=== PATIENT | female | born 1990 | race Caucasian/White ===

== ENCOUNTER 2023-10-05 15:29 | Inpatient (IN) ==
[2023-10-05] MEDS: LACTATED RINGER'S 1,000 ML IV PRN ×3 (17:55→20:20)
[2023-10-05] MEDS ORDERED: OXYTOCIN 30 UNITS/NSS 30 UNITS/500 ML BAG IV PRN (19:57)
[2023-10-05] MEDS ORDERED: LACTATED RINGER'S 1,000 ML IV PRN (19:57)
[2023-10-05] MEDS ORDERED: LIDOCAINE 1% LOCAL 20 ML VIAL INFIL PRN (19:57)
[2023-10-05] MEDS ORDERED: LIDOCAINE 2%/EPINEPHRINE 1:200,000 20 ML PF ONE (20:01)
[2023-10-05] MEDS ORDERED: fentANYL 2 MCG/ML BUPIVacaine 0.125%-NSS 100ML BAG ONE (20:01)
[2023-10-05] MEDS ORDERED: SODIUM CHLORIDE 0.9% PF INJ 10 ML VIAL ONE (20:01)
[2023-10-05] MEDS ORDERED: fentaNYL citrate PF 100 MCG/2 ML VIAL ONE (20:01)
[2023-10-05] MEDS ORDERED: ePHEDrine sulfate 50 MG/ML AMP ONE (20:01)
[2023-10-05] MEDS ORDERED: BUPIVACAINE 0.25% PF 30 ML VIAL ONE (20:01)
--- NOTE | 2023-10-05 20:01 | History & Physical Report ---
Date of Service October 05, 2023 Assessment & Plan (1) Post-dates : Plan plan to admit and augment labor with arom after receiving epidural. Fetus category one. Anticipate . History of Present Illness Chief Complaint: contractions Primary Care Provider: NO PCP Patient is a 33yof with iup at 40 1/7 weeks who presents to labor and delivery with contractions. She notes started in am and progressively getting worse all day. the patient has had very little hydration as well and dipped very high ketones. She was given two liters of ivf, notes contractions and closer and more painful. no lof/vb. Given that she is 40 1/7 weeks, I offered admission, epidural and arom. She is agreeable. and Delivery Plans Carrier of Alpha Thalassemia *FOB to be tested-negative IOL - 10/13 Protocols Last pap 11/16/22 with C WNL OB Labs: Hemoglobin 11.6 g/dl (12.0-16.0) L 07/12/23 Hematocrit 34.9 % (37.0-47.0) L 07/12/23 Glucose 1 Hour 50 gm Load 104 mg/dl (70-130) 07/12/23 Maternal Serum Alpha Fetoprotein 32.7 ng/mL 04/23/23 OB Optional Labs: Alpha Fetoprotein Triple Screen SEE NOTE 04/23/23 Labs Reviewed: Initial OB Labs Blood Type & RH A positive Antibody Screen negative HCT/HGB39.5/12.5 [id number] Hep C IgG 13yrs+ Old negative Pap Test11/13/22 WNL Chlamydia negative Gonorrhea negative Rubella immune RPR non reactive Urine Culture/Screen no growth HBsAg negative HIV negative MCV88.8 11/2022 neg cyto qnatal - wnl, male afp neg gbs neg Allergies Allergy/AdvReac Type Severity Reaction Status Date / Time No Known Allergies Allergy Verified 10/05/23 10:10 Home Medications Medication Instructions Recorded Confirmed Type prenat.vits,terrance,zlq-oczs-oefce 1 tab PO DAILY 04/06/23 10/05/23 History RSV vac, preF A and preF B(PF) 120 0.5 ml IM ONCE #1 ea 08/26/23 10/05/23 Rx mcg/0.5 mL IM solution (Abrysvo) Patient History Medical History Migraine with aura history Surgical History Status post colposcopy S/P wisdom tooth extraction Family History Mother Diabetes Hypertension Migraines Father Diabetes Hypertension Dyslipidemia Social History Smoking Status: Never smoker Do You Dip or Chew Tobacco: No; Hx Alcohol Use: No Hx Substance Use: No Preferred Language: Wolof Beliefs That Will Affect Care: None marital status: marital status details: Bill [phone] Current Living Situation: Spouse Current Living Situation Comment: lives with spouse, no pets. current occupational status: employed current occupation: professor at [employer] Other Information That Helps Us Care for You: No Feels Safe at Home: Yes Safety Concerns: Feels Safe At This Time Assistive Devices: None OB History g1--eab YARD COORDINATOR History noncontributory Physical Exam Constitutional: WD/WN, vitals as above Gastrointestinal (Abdomen): soft, gravid Genitourinary: cx--1+/75/-3 after several checks through the evening toco=1=3min efm--130s with mod variability, accels to 160s, no decels Results & Data Vital Signs (Past 12 Hours) Vital Signs Temp Pulse Resp BP 10/05/23 18:52 36.8 C 83 18 139/81 10/05/23 15:46 36.8 C 82 20 129/84 10/05/23 15:42 36.8 C 20 Code Status & VTE Plan VTE Prophylaxis Plan VTE Prophylaxis will be ordered: No Coding Level of Care Code None Diagnoses Post-dates O48.0
[2023-10-05 20:42] LABS: Hemoglobin 11.9 g/dl (12.0-16.0); Mean Corpuscular Hemoglobin 28.9 pg (25.0-34.0); Mean Platelet Volume 11.3 fL (9.4-12.4); Platelet Count 291 K/uL (130-400); RDW Coefficient of Variation 14.1 % (11.5-14.5); RDW Standard Deviation 43.6 fL (36.4-46.3); Red Blood Count 4.12 M/uL (4.20-5.40); White Blood Count 16.82 K/ul (4.8-10.8)
--- NOTE | 2023-10-05 21:49 | Anesthesiology Consultation ---
Date of Service October 05, 2023 Assessment & Plan Chart Review Chart Review: Acceptable Risk for Labor Epidural Consults Requested none History Height/Weight Height: 5 ft 3 in Weight: 73.028 kg Allergies Allergy/AdvReac Type Severity Reaction Status Date / Time No Known Allergies Allergy Verified 10/05/23 10:10 Medications Home Medications Medication Instructions Recorded Confirmed Last Taken prenat.vits,terrance,dut-kuhf-jzblk 1 tab PO DAILY 04/06/23 10/05/23 Unknown RSV vac, preF A and preF B(PF) 120 0.5 ml IM ONCE #1 ea 08/26/23 10/05/23 Unknown mcg/0.5 mL IM solution (Abrysvo) Active Medications Generic Name Dose Route Start Last Admin Trade Name Freq PRN Reason Stop Dose Admin Lactated Ringer's 1,000 mls @ 125 mls/hr 10/05/23 18:03 10/05/23 20:20 Lr IV 11/04/23 18:02 125 mls/hr .Q8H PRN Administration L&D Protocol Protocol Past Medical History Medical History Migraine with aura history Past Family History Family History Mother Diabetes Hypertension Migraines Father Diabetes Hypertension Dyslipidemia Past Surgical History Surgical History Status post colposcopy S/P wisdom tooth extraction Social History Smoking Status: Never smoker Do You Dip or Chew Tobacco: No Hx Alcohol Use: No Hx Substance Use: No substance use type: does not use Physical Exam Vital Signs Last Vital Signs Temp 36.8 C 10/05/23 18:52 Pulse 107 H 10/05/23 21:45 Resp 18 10/05/23 21:22 BP 119/62 10/05/23 21:45 Pulse Ox 95 10/05/23 21:45 Testing Laboratory Results 10/05/23 20:28
[2023-10-05] MEDS ORDERED: ROPIVACAINE 0.5% PF 5 MG/ML 20 ML VIAL EPI PRN (21:51)
[2023-10-05] MEDS ORDERED: LIDOCAINE 2% MPF LOCAL 5 ML VIAL EPI PRN (21:51)
[2023-10-05] MEDS ORDERED: SODIUM CHLORIDE 0.9% PF INJ 10 ML VIAL EPI STA (21:51)
[2023-10-05] MEDS ORDERED: SODIUM CHLORIDE 0.9% PF INJ 10 ML VIAL EPI PRN (21:51)
[2023-10-05] MEDS ORDERED: NALOXONE HCL 0.4 MG/1 ML VIAL/CARP IV PRN (21:51)
[2023-10-05] MEDS ORDERED: LIDOCAINE 2%/EPINEPHRINE 1:200,000 20 ML PF EPI STA (21:51)
[2023-10-05] MEDS ORDERED: BUPIVACAINE 0.25% PF 30 ML VIAL EPI STA (21:51)
[2023-10-05] MEDS ORDERED: ePHEDrine sulfate 50 MG/ML AMP IV PRN (21:51)
[2023-10-05] MEDS ORDERED: diphenhydrAMINE 50 MG/ML VIAL IV PRN (21:51)
[2023-10-05] MEDS ORDERED: fentaNYL citrate PF 100 MCG/2 ML VIAL EPI PRN (21:51)
[2023-10-05] MEDS ORDERED: NALBUPHINE HCL 5 MG in SYRINGE 0 ML IV PRN (21:51)
[2023-10-05] MEDS ORDERED: NALOXONE HCL 1 MG in SODIUM CHLORIDE 0.9% 1,000 ML IV PRN (21:51)
[2023-10-05] MEDS ORDERED: ONDANSETRON INJ 2 MG/ML 2 ML VIAL IV PRN (21:51)
[2023-10-05] MEDS ORDERED: BUPIVACAINE 0.25% PF 30 ML VIAL EPI PRN (21:51)
[2023-10-05] MEDS ORDERED: fentaNYL citrate PF 100 MCG/2 ML VIAL EPI STA (21:51)
--- NOTE | 2023-10-05 22:38 | Labor Progress Brief Note ---
Date of Service October 05, 2023 Subjective comfortable after epidural Assessment & Plan (1) Post-dates : Post-term type: 40-42 weeks gestation Qualified Code(s): O48.0 - Post-term Plan continue current management. fetus category one. Admission and Anticipated Discharge Date Admission Date: October 05, 2023 Physical Exam Physical Exam: cx--4-5/80/-2 arom--clear toco--q2-4min efm--140s with mod variability, accels present, no decels Results & Data Vital Signs (Past 12 Hours) Vital Signs Temp Pulse Resp BP Pulse Ox 10/05/23 22:32 105 H 114/78 10/05/23 22:30 109 H 96 10/05/23 22:25 91 H 94 10/05/23 22:20 95 H 95 10/05/23 22:17 97 H 107/64 10/05/23 22:15 93 H 97 10/05/23 22:10 104 H 98 10/05/23 22:05 94 H 99 10/05/23 22:00 101 H 109/58 L 96 10/05/23 21:55 96 10/05/23 21:55 96 H 10/05/23 21:55 104 H 106/55 L 10/05/23 21:50 103 H 96/51 L 96 10/05/23 21:45 95 10/05/23 21:45 107 H 10/05/23 21:45 113 H 119/62 10/05/23 21:43 106 H 120/68 10/05/23 21:41 96 H 123/71 10/05/23 21:40 107 H 95 10/05/23 21:39 89 118/74 10/05/23 21:35 97 H 94 10/05/23 21:30 92 H 95 10/05/23 21:25 87 94 10/05/23 21:22 90 18 136/78 10/05/23 21:20 91 H 94 10/05/23 18:52 36.8 C 83 18 139/81 10/05/23 15:46 36.8 C 82 20 129/84 10/05/23 15:42 36.8 C 20 Coding Level of Care Code None Diagnoses Post-term , 40-42 weeks of gestation O48.0 Post-term type: 40-42 weeks gestation
[2023-10-06] MEDS ORDERED: OXYTOCIN 30 UNITS/NSS 30 UNITS/500 ML BAG IV PRN ×2 (02:24→14:52)
--- NOTE | 2023-10-06 02:24 | Labor Progress Brief Note ---
Date of Service October 06, 2023 Subjective comfortable Assessment & Plan (1) Post-dates : Post-term type: 40-42 weeks gestation Qualified Code(s): O48.0 - Post-term Plan Will start pitocin. fetus category one. Admission and Anticipated Discharge Date Admission Date: October 05, 2023 Physical Exam Physical Exam: cx--5/100/-1 toco--q3-5min efm--140s with mod variability, small accels , no decels Results & Data Vital Signs (Past 12 Hours) Vital Signs Temp Pulse Resp BP Pulse Ox 10/06/23 02:20 112 H 96 10/06/23 02:18 101 H 113/71 10/06/23 02:15 103 H 92 10/06/23 02:10 106 H 91 10/06/23 02:05 99 H 92 10/06/23 02:01 96 H 117/69 10/06/23 02:00 101 H 92 10/06/23 01:55 103 H 93 10/06/23 01:50 109 H 92 10/06/23 01:46 106 H 116/70 10/06/23 01:45 101 H 92 10/06/23 01:40 107 H 92 10/06/23 01:35 109 H 91 10/06/23 01:33 114 H 113/68 10/06/23 01:30 116 H 94 10/06/23 01:25 90 94 10/06/23 01:20 88 94 10/06/23 01:17 88 104/60 10/06/23 01:15 89 92 10/06/23 01:10 88 92 10/06/23 01:05 87 94 10/06/23 01:02 90 102/57 L 10/06/23 01:00 92 H 93 10/06/23 00:55 88 93 10/06/23 00:50 89 93 10/06/23 00:47 90 103/59 L 10/06/23 00:45 90 93 10/06/23 00:40 97 H 95 10/06/23 00:35 90 93 10/06/23 00:32 87 104/60 10/06/23 00:30 37.1 C 87 93 10/06/23 00:25 87 94 10/06/23 00:20 92 H 94 10/06/23 00:17 86 102/57 L 10/06/23 00:15 84 92 10/06/23 00:10 90 94 10/06/23 00:05 85 93 10/06/23 00:01 90 104/58 L 10/06/23 00:00 88 92 10/05/23 23:55 88 92 10/05/23 23:50 91 H 92 10/05/23 23:47 81 99/59 L 10/05/23 23:45 85 93 10/05/23 23:40 87 92 10/05/23 23:35 88 93 10/05/23 23:32 92 H 100/58 L 10/05/23 23:30 90 93 10/05/23 23:25 104 H 94 10/05/23 23:20 91 H 94 10/05/23 23:16 108 H 113/69 10/05/23 23:15 94 H 93 10/05/23 23:10 97 H 93 10/05/23 23:05 93 H 92 10/05/23 23:01 99 H 116/71 10/05/23 23:00 90 93 10/05/23 22:55 88 92 10/05/23 22:50 93 H 94 10/05/23 22:47 90 107/70 10/05/23 22:45 94 H 94 10/05/23 22:40 92 H 94 10/05/23 22:35 94 H 95 10/05/23 22:32 105 H 114/78 10/05/23 22:30 36.9 C 109 H 96 10/05/23 22:25 91 H 94 10/05/23 22:20 95 H 95 10/05/23 22:17 97 H 107/64 10/05/23 22:15 93 H 97 10/05/23 22:10 104 H 98 10/05/23 22:05 94 H 99 10/05/23 22:00 101 H 109/58 L 96 10/05/23 21:55 96 10/05/23 21:55 96 H 10/05/23 21:55 104 H 106/55 L 10/05/23 21:50 103 H 96/51 L 96 10/05/23 21:45 95 10/05/23 21:45 107 H 10/05/23 21:45 113 H 119/62 10/05/23 21:43 106 H 120/68 10/05/23 21:41 96 H 123/71 10/05/23 21:40 107 H 95 10/05/23 21:39 89 118/74 10/05/23 21:35 97 H 94 10/05/23 21:30 92 H 95 10/05/23 21:25 87 94 10/05/23 21:22 90 18 136/78 10/05/23 21:20 91 H 94 10/05/23 18:52 36.8 C 83 18 139/81 10/05/23 15:46 36.8 C 82 20 129/84 10/05/23 15:42 36.8 C 20 Coding Level of Care Code None Diagnoses Post-term , 40-42 weeks of gestation O48.0 Post-term type: 40-42 weeks gestation
[2023-10-06] MEDS: LACTATED RINGER'S 1,000 ML IV PRN ×2 (03:50→11:40)
[2023-10-06] MEDS: fentANYL 2 MCG/ML BUPIVacaine 0.125%-NSS 100ML BAG EPI PRN ×2 (05:01→11:37)
--- NOTE | 2023-10-06 06:00 | Labor Progress Brief Note ---
Date of Service October 06, 2023 Subjective comfortable Assessment & Plan (1) Post-dates : Post-term type: 40-42 weeks gestation Qualified Code(s): O48.0 - Post-term Plan Better contraction pattern and making change. Fetus category one. Continue current management. Admission and Anticipated Discharge Date Admission Date: October 05, 2023 Physical Exam Physical Exam: cx--7/100/-1 toco--q2-3min, pit at 7 efm--140s with mod variabiltiy, small accels, no decels Results & Data Vital Signs (Past 12 Hours) Vital Signs Temp Pulse Resp BP Pulse Ox 10/06/23 05:55 114 H 97 10/06/23 05:50 116 H 96 10/06/23 05:47 113 H 121/83 10/06/23 05:45 124 H 94 10/06/23 05:40 37.1 C 116 H 94 10/06/23 05:35 106 H 93 10/06/23 05:31 115 H 127/85 10/06/23 05:30 102 H 94 10/06/23 05:25 119 H 96 10/06/23 05:20 115 H 93 10/06/23 05:18 117 H 126/84 10/06/23 05:15 111 H 93 10/06/23 05:10 114 H 93 10/06/23 05:05 104 H 95 10/06/23 05:02 109 H 133/86 10/06/23 05:00 115 H 96 10/06/23 04:55 98 H 96 10/06/23 04:50 96 H 94 10/06/23 04:47 96 H 113/66 10/06/23 04:45 96 H 95 10/06/23 04:40 99 H 94 10/06/23 04:35 97 H 95 10/06/23 04:31 91 H 110/67 10/06/23 04:30 102 H 98 10/06/23 04:25 99 H 97 10/06/23 04:20 92 H 94 10/06/23 04:16 92 H 110/64 10/06/23 04:15 93 H 95 10/06/23 04:10 94 H 94 10/06/23 04:05 93 H 97 10/06/23 04:03 90 107/65 10/06/23 04:00 88 94 10/06/23 03:55 96 H 96 10/06/23 03:50 95 H 95 10/06/23 03:48 90 106/63 10/06/23 03:45 90 94 10/06/23 03:40 94 H 95 10/06/23 03:35 97 H 94 10/06/23 03:31 96 H 102/60 10/06/23 03:30 101 H 93 10/06/23 03:25 36.9 C 95 H 93 10/06/23 03:20 102 H 94 10/06/23 03:18 106 H 118/74 10/06/23 03:15 104 H 94 10/06/23 03:10 114 H 96 10/06/23 03:05 106 H 93 10/06/23 03:01 108 H 113/71 10/06/23 03:00 99 H 93 10/06/23 02:55 102 H 92 10/06/23 02:50 102 H 93 10/06/23 02:48 106 H 116/70 10/06/23 02:45 111 H 94 10/06/23 02:40 95 H 93 10/06/23 02:35 110 H 93 10/06/23 02:31 107 H 106/68 10/06/23 02:30 16 10/06/23 02:30 37.2 C 96 H 16 93 10/06/23 02:25 113 H 93 10/06/23 02:20 112 H 96 10/06/23 02:18 101 H 113/71 10/06/23 02:15 103 H 92 10/06/23 02:10 106 H 91 10/06/23 02:05 99 H 92 10/06/23 02:01 96 H 117/69 10/06/23 02:00 101 H 92 10/06/23 01:55 103 H 93 10/06/23 01:50 109 H 92 10/06/23 01:46 106 H 116/70 10/06/23 01:45 101 H 92 10/06/23 01:40 107 H 92 10/06/23 01:35 109 H 91 10/06/23 01:33 114 H 113/68 10/06/23 01:30 116 H 94 10/06/23 01:25 90 94 10/06/23 01:20 88 94 10/06/23 01:17 88 104/60 10/06/23 01:15 89 92 10/06/23 01:10 88 92 10/06/23 01:05 87 94 10/06/23 01:02 90 102/57 L 10/06/23 01:00 92 H 93 10/06/23 00:55 88 93 10/06/23 00:50 89 93 10/06/23 00:47 90 103/59 L 10/06/23 00:45 90 93 10/06/23 00:40 97 H 95 10/06/23 00:35 90 93 10/06/23 00:32 87 104/60 10/06/23 00:30 37.1 C 87 93 10/06/23 00:25 87 94 10/06/23 00:20 92 H 94 10/06/23 00:17 86 102/57 L 10/06/23 00:15 84 92 10/06/23 00:10 90 94 10/06/23 00:05 85 93 10/06/23 00:01 90 104/58 L 10/06/23 00:00 88 92 10/05/23 23:55 88 92 10/05/23 23:50 91 H 92 10/05/23 23:47 81 99/59 L 10/05/23 23:45 85 93 10/05/23 23:40 87 92 10/05/23 23:35 88 93 10/05/23 23:32 92 H 100/58 L 10/05/23 23:30 90 93 10/05/23 23:25 104 H 94 10/05/23 23:20 91 H 94 10/05/23 23:16 108 H 113/69 10/05/23 23:15 94 H 93 10/05/23 23:10 97 H 93 10/05/23 23:05 93 H 92 10/05/23 23:01 99 H 116/71 10/05/23 23:00 90 93 10/05/23 22:55 88 92 10/05/23 22:50 93 H 94 10/05/23 22:47 90 107/70 10/05/23 22:45 94 H 94 10/05/23 22:40 92 H 94 10/05/23 22:35 94 H 95 10/05/23 22:32 105 H 114/78 10/05/23 22:30 36.9 C 109 H 96 10/05/23 22:25 91 H 94 10/05/23 22:20 95 H 95 10/05/23 22:17 97 H 107/64 10/05/23 22:15 93 H 97 10/05/23 22:10 104 H 98 10/05/23 22:05 94 H 99 10/05/23 22:00 101 H 109/58 L 96 10/05/23 21:55 96 10/05/23 21:55 96 H 10/05/23 21:55 104 H 106/55 L 10/05/23 21:50 103 H 96/51 L 96 10/05/23 21:45 95 10/05/23 21:45 107 H 10/05/23 21:45 113 H 119/62 10/05/23 21:43 106 H 120/68 10/05/23 21:41 96 H 123/71 10/05/23 21:40 107 H 95 10/05/23 21:39 89 118/74 10/05/23 21:35 97 H 94 10/05/23 21:30 92 H 95 10/05/23 21:25 87 94 10/05/23 21:22 90 18 136/78 10/05/23 21:20 91 H 94 10/05/23 18:52 36.8 C 83 18 139/81 Coding Level of Care Code None Diagnoses Post-term , 40-42 weeks of gestation O48.0 Post-term type: 40-42 weeks gestation
--- NOTE | 2023-10-06 09:15 | Anesthesia Procedure Note ---
Date of Service October 06, 2023 Anesthesia Epidural Re-Dose Vital Signs Temp Pulse Resp BP Pulse Ox 37.2 C 96 H 20 132/68 94 10/06/23 07:00 10/06/23 09:12 10/06/23 08:30 10/06/23 09:12 10/06/23 09:10 Notes Pain Intensity: 0 Dilatation (cm): 10.0 Effacement (%): 100 Called by nursing to evaluate epidural as the patient is having increased pain. The epidural was re-dosed with the following medications (all medications via epidural route) after negative aspiration of the epidural catheter for CSF/HEME. 6ml of 0.25% bupivacaine and 100mcg fentanyl After Epidural Re-Dose Mental Status: alert / awake / arousable Pain: improving with treatment Airway Patency, RR, SpO2: stable & adequate BP & HR: stable & adequate
--- NOTE | 2023-10-06 14:40 | Delivery Summary ---
Vaginal Delivery Summary Date of Service October 06, 2023 Vaginal Delivery Summary and 2nd Degree LAC Spontaneous vaginal delivery patient was induced from late yesterday as she was having prodromal labor Pitocin artificial rupture of membranes and then progressed to fully dilated she was getting significant vulvar and vaginal swelling and also bleeding with each push I did offer the patient a small episiotomy as I felt her if she was already tearing it might be an extension to 1/4 degree. Patient agreed to this on a small midline episiotomy was made with scissors patient was unable to push baby out occiput anterior position mouth and nares were suctioned there was some meconium Cord clamped and cut it was easy delivery no excessive force used. Once delivery of the placenta occurred IV Pitocin started uterine tone improved hemostasis appropriate there were bilateral vaginal sulcus tears unrelated to the episiotomy was repaired with 3-0 Vicryl in the midline episiotomy was repaired there was no extension into the rectum or the rectal muscles rectal exam was negative for sutures or defects sponge and instrument counts were correct 300 mL blood loss note live vigorous male [facility] Vaginal Delivery Charge Delivery Type Details: and 2nd Degree LAC
[2023-10-06] MEDS ORDERED: DIPHTHERIA/TETANUS/PERTUSSIS Vaccine (Tdap, Age 7+yrs) 0.5mL SYR/VL IM ONE (14:52)
[2023-10-06] MEDS ORDERED: oxyCODONE/ACETAMINOPHEN 5mg/325mg TAB PO PRN (14:52)
[2023-10-06] MEDS ORDERED: bisacodyL 10 MG SUPP PR PRN (14:52)
[2023-10-06] MEDS ORDERED: ACETAMINOPHEN 325 MG TAB PO PRN (14:52)
[2023-10-06] MEDS ORDERED: HYDROCORTISONE ACETATE 25 MG SUPP PR PRN (14:52)
[2023-10-06] MEDS ORDERED: BENZOCAINE 20% SPRY 85 APPLN/85 GM CAN EXT PRN (14:52)
[2023-10-06 14:58] LABS: Base Excess Cord Venous Blood -17.7 mEq/L (-7.7-1.9); Cord Venous Blood HCO3 13 mmol/L (18.4-26.8); Cord Venous Blood PCO2 47 mmHg (30.4-57.2); Cord Venous Blood PO2 22 mmHg (14.1-43.3); Cord Venous Blood pH 7.04 (7.20-7.44); O2 Saturation Cord Venous Bld < 60.0 % (<68)
[2023-10-06 14:59] LABS: CO2 Cord Arterial Blood 65 mmHg (39.1-73.5); Oxygen Sat Cord Arterial Blood < 60.0 % (<60); PO2 Cord Arterial Blood 21 mmHg (4.1-31.7); pH Cord Arterial Blood < 7.00 (7.1-7.38)
[2023-10-06] MEDS: IBUPROFEN 600 MG TAB PO PRN ×3 (16:18→22:52)
--- NOTE | 2023-10-06 18:32 | Anesthesia Procedure Note ---
Date of Service October 06, 2023 Anesthesia Post Epidural Note Vital Signs Vital Signs: Temp Pulse Resp BP Pulse Ox O2 Del Method 36.7 C 73 16 110/73 99 Room Air 10/06/23 18:02 10/06/23 18:02 10/06/23 18:02 10/06/23 18:02 10/06/23 14:32 10/06/23 18:02 Pain Intensity Lower Abdomen: Pain Intensity: 5 Notes Mental Status: alert / awake / arousable and participated in evaluation Patient Amnestic to Procedure: No Nausea / Vomiting: adequately controlled Pain: adequately controlled Airway Patency, RR, SpO2: stable & adequate BP & HR: stable & adequate Hydration State: stable & adequate Neuraxial Anesthesia: was administered and sensory block resolved Anesthetic Complications: no major complications apparent and Pt Satisfied with anesthetic care Epidural: Removed without complications and With tip intact
[2023-10-06] MEDS ORDERED: DOCUSATE SODIUM 100 MG CAP PO ONE (19:19)
[2023-10-06] MEDS: DOCUSATE SODIUM 100 MG CAP PO SCH (19:23)
[2023-10-07] MEDS: IBUPROFEN 600 MG TAB PO PRN ×5 (02:34→19:49)
--- NOTE | 2023-10-07 05:55 | Obstetrical Progress Note ---
Date of Service <Francis Rashad - Last Filed: 10/07/23 07:07> October 07, 2023 Assessment & Plan <Francis Solorzano - Last Filed: 10/07/23 07:07> (1) care following vaginal delivery: Plan 33 year old , PPD#1: Eating well, prabhakar catheter in place, ambulating well Vitals reviewed, WNL Pain well controlled with Motrin Routine care - OOB, ambulation, diet progression as tolerated Will have 6 week follow up with Dr. Simpson <Ambar Simpson MD, FACOG - Last Filed: 10/07/23 08:06> (1) care following vaginal delivery: Subjective <Francissuzi Solorzano - Last Filed: 10/07/23 07:07> Ambulation: ambulating normally Voiding: prabhakar catheter in place Passing Gas:: Yes Diet Tolerance:: regular diet Lochia:: Moderate Feeding Type:: breast feeding pain well controlled with Motrin Review of Systems -Denies fever or chills -Denies dyspnea, chest pain, or palpitations -Denies dysuria -Denies headache or changes in vision Physical Exam <Francis Rashad - Last Filed: 10/07/23 07:07> General: Alert and oriented. No acute distress Cardiac: Regular rate and rhythm, no murmurs appreciated Respiratory: Lungs clear to auscultation bilaterally, No increased work of breathing Abdominal: Soft, non-tender, non-distended. Bowel sounds present. Uterus: Uterine fundus firm, palpable below umbilicus Extremities: No lower extremity edema, calves non-tender bilaterally Results & Data <Francis Solorzano - Last Filed: 10/07/23 07:07> Vital Signs (Past 12 Hours) Vital Signs Temp Pulse Resp BP O2 Del Method 10/07/23 03:00 36.5 C 75 18 105/71 Room Air 10/06/23 23:00 36.6 C 80 18 118/82 Room Air 10/06/23 19:35 36.7 C 82 18 111/74 Room Air 10/06/23 18:02 36.7 C 73 16 110/73 Room Air Supervising Physician <Ambar Simpson MD, FACOG - Last Filed: 10/07/23 08:06> Co-Signing Physician Notes Resident Physician Supervision Note: I was present with Dr. Solorzano during the history and exam. I discussed the case with the resident and agree with the findings and plan as documented in the note. Any exceptions or clarifications are listed here: [None] Documented By: Ambar Simpson MD, FACOG Resident Activity Tracking <Francis Solorzano, DO - Last Filed: 10/07/23 07:07> Resident Involvement: Resident Care Provided Care Provided: OB Delivery
[2023-10-07 06:39] LABS: Hemoglobin 8.5 g/dl (12.0-16.0); Mean Corpuscular Hemoglobin 28.9 pg (25.0-34.0); Mean Platelet Volume 11.3 fL (9.4-12.4); Platelet Count 227 K/uL (130-400); RDW Coefficient of Variation 14.2 % (11.5-14.5); RDW Standard Deviation 43.8 fL (36.4-46.3); Red Blood Count 2.94 M/uL (4.20-5.40)
[2023-10-07] MEDS: PRENATAL VITAMIN 1 TAB PO SCH (08:42)
[2023-10-07] MEDS: DOCUSATE SODIUM 100 MG CAP PO SCH ×2 (08:42→19:49)
[2023-10-07] MEDS ORDERED: bisacodyL 5 MG TABEC PO SCH (20:00)
[2023-10-08] MEDS: IBUPROFEN 600 MG TAB PO PRN ×2 (00:32→06:02)
--- NOTE | 2023-10-08 05:31 | Obstetrical Progress Note ---
Date of Service <Francis Solorzano DO - Last Filed: 10/08/23 06:43> October 08, 2023 Assessment & Plan <Francis Solorzano DO - Last Filed: 10/08/23 06:43> (1) care following vaginal delivery: Plan 33 year old , PPD#2: Eating well, voiding well, ambulating well Vitals reviewed, WNL Pain well controlled with Tylenol and Motrin Numbness in right finger highly unlikely to be related to epidural placement, more likely due to swelling, recommend continued monitoring at this time Routine care - OOB, ambulation, diet progression as tolerated Will have 6 week follow up with Dr. Simpson <Cynthia Hinojosa MD, FACOG - Last Filed: 10/08/23 07:22> (1) care following vaginal delivery: Subjective <Francis Solorzano - Last Filed: 10/08/23 06:43> Ambulation: ambulating normally Voiding: no voiding problems Passing Gas:: Yes Diet Tolerance:: regular diet Lochia:: Small Feeding Type:: breast feeding pain well controlled with Tylenol and Motrin Patient also notes numbness in the right third digit, thinks this first started around the time epidural was placed. Also notes mildly diminished sensation in the 2nd and 4th digits. Motor function preserved. Review of Systems -Denies fever or chills -Denies dyspnea, chest pain, or palpitations -Denies dysuria -Denies headache or changes in vision Physical Exam <Francis Solorzano - Last Filed: 10/08/23 06:43> General: Alert and oriented. No acute distress Cardiac: Regular rate and rhythm, no murmurs appreciated Respiratory: Lungs clear to auscultation bilaterally, No increased work of breathing Abdominal: Soft, non-tender, non-distended. Bowel sounds present. Uterus: Uterine fundus firm, palpable below umbilicus Extremities: No lower extremity edema, calves non-tender bilaterally Results & Data <Francis Solorzano - Last Filed: 10/08/23 06:43> Vital Signs (Past 12 Hours) Vital Signs Temp Pulse Resp BP Pulse Ox O2 Del Method 10/08/23 02:15 36.7 C 86 18 109/70 98 Room Air 10/07/23 18:59 36.9 C 88 18 108/70 98 Room Air Supervising Physician <Cynthia Hinojosa MD, FACOG - Last Filed: 10/08/23 07:22> Co-Signing Physician Notes Resident Physician Supervision Note: I was present with Dr. Solorzano during the history and exam. I discussed the case with the resident and agree with the findings and plan as documented in the note. Any exceptions or clarifications are listed here: stable doing well. some finger numbness i don't think related to her epidural as she inquires, likely due to swelling and should just monitor and suspect will improve with time. abd soft ff at u, nt, ext nt calves. ppd #2 eating, voiding, ambulating, breast feeding, rh pos, ri. ready to go home. instructions reviewed. f/u 6 wk pp check. Documented By: Cynthia Hinojosa MD, FACOG Resident Activity Tracking <Francis Solorzano DO - Last Filed: 10/08/23 06:43> Resident Involvement: Resident Care Provided Care Provided: OB Delivery
[2023-10-08 07:35] LABS: Hematocrit (blood only) 24.9 % (37.0-47.0); Hemoglobin 8.4 g/dl (12.0-16.0)
[2023-10-08] MEDS: DOCUSATE SODIUM 100 MG CAP PO SCH (08:10)
[2023-10-08] MEDS: PRENATAL VITAMIN 1 TAB PO SCH (08:10)
== END 2023-10-08 13:35 | disposition home or self-care (01) | DRG 768 ==
LOC: OPB 15:29 → 4S1 15:40 → 4E2 10-06 17:30